=== PATIENT | male | born 1960 | race Caucasian/White ===

== ENCOUNTER 2016-05-21 09:41 | Inpatient (IN) | payer MEDICARE, OTHER ==
[~2016-05-21] VITALS: Ht 175.3 cm; Wt 88.9 kg
[~2016-05-21 09:41] MED LIST: KLONOPIN TAB 00.5 MG PO; LISINOPRIL5 MG PO; LORCET HD 10-31 EACH PO; LYRICA150 MG PO; MOBIC7.5 MG PO; PERCOCET 10-321 EACH PO; PRILOSEC OTC20 MG PO; ZOCOR40 MG PO; ZYLOPRIM 100 M100 MG PO
[2016-05-21 10:32] LABS: HEMOGLOBIN 13.8 gm/dl (14.0-17.5); RED BLOOD COUNT 4.74 M/UL (4.20-5.50); WHITE BLOOD COUNT 4.2 K/UL (4.5-11.0)
[2016-05-21 10:54] LABS: BUN/CREATININE RATIO 11 (0-10)
[2016-05-22 05:47] LABS: HEMOGLOBIN 12.3 gm/dl (14.0-17.5)
[2016-05-22 05:54] LABS: RED BLOOD COUNT 4.23 M/UL (4.20-5.50); WHITE BLOOD COUNT 8.4 K/UL (4.5-11.0)
[2016-05-22 06:14] LABS: BUN/CREATININE RATIO 15 (0-10)
[2016-05-23 05:28] LABS: HEMOGLOBIN 11.7 gm/dl (14.0-17.5); RED BLOOD COUNT 4.04 M/UL (4.20-5.50); WHITE BLOOD COUNT 7.1 K/UL (4.5-11.0)
[2016-05-23 05:46] LABS: BUN/CREATININE RATIO 17 (0-10)
[2016-05-24 05:23] LABS: HEMOGLOBIN 11.5 gm/dl (14.0-17.5); WHITE BLOOD COUNT 5.2 K/UL (4.5-11.0)
[2016-05-24 05:43] LABS: BUN/CREATININE RATIO 17 (0-10)
[2016-05-25 04:29] LABS: BUN/CREATININE RATIO 18 (0-10)
[2016-05-26 05:24] LABS: BUN/CREATININE RATIO 13 (0-10)
[2016-05-27 06:31] LABS: BUN/CREATININE RATIO 17 (0-10)
== END 2016-05-27 16:15 | DRG 465 ==
LOC: OR 09:41 → M/S 18:16 → OR 05-22 13:27 → M/S 05-22 13:27
PROVIDERS: Internal Medicine Infectious Disease; ADMIT Orthopaedic Surgery
PROC: 0J9Q0ZZ Drainage of Right Foot Subcutaneous Tissue and Fascia, Open Approach (ICD-10-PCS; principal; 2016-05-22)
PROC: 0JBQ0ZZ Excision of Right Foot Subcutaneous Tissue and Fascia, Open Approach (ICD-10-PCS; 2016-05-22)
PROC: B5181ZA Fluoroscopy of Superior Vena Cava using Low Osmolar Contrast, Guidance (ICD-10-PCS; 2016-05-23)
PROC: 02HV33Z Insertion of Infusion Device into Superior Vena Cava, Percutaneous Approach (ICD-10-PCS; 2016-05-23)
DX: T84.59XA Infection and inflammatory reaction due to other internal joint prosthesis, initial encounter (principal); Z96.661 Presence of right artificial ankle joint; A49.02 Methicillin resistant Staphylococcus aureus infection, unspecified site; I10 Essential (primary) hypertension; E78.5 Hyperlipidemia, unspecified; E03.9 Hypothyroidism, unspecified; M10.9 Gout, unspecified; F32.9 Major depressive disorder, single episode, unspecified; K21.9 Gastro-esophageal reflux disease without esophagitis; Z98.890 Other specified postprocedural states; Z87.828 Personal history of other (healed) physical injury and trauma; F17.210 Nicotine dependence, cigarettes, uncomplicated; Z80.9 Family history of malignant neoplasm, unspecified; Z83.6 Family history of other diseases of the respiratory system; Z88.6 Allergy status to analgesic agent; Z79.899 Other long term (current) drug therapy; Z79.1 Long term (current) use of non-steroidal anti-inflammatories (NSAID)
CPT/HCPCS: 36415; 80048; 80053; 80202; 81001; 83036; 84443; 85025; 86140; 86850; 86900; 86901; 87070; 87077; 87081; 87186; 87205; 93005; 97110; 97116; J1100; J1885; J2270; J2405; J2795; J3010; J3370; J7070; J7120

== ENCOUNTER → 2016-07-01 | Outpatient (CLI) | payer MEDICARE, OTHER ==
[~2016-07-01] VITALS: Ht 175.3 cm; Wt 102.1 kg
[~2016-07-01] MED LIST changes: +PAXIL40 MG PO; +SYNTHROID125 MCG PO; +VANCOCIN 125MG/2.5ML IV
== END ==
LOC: OPSV 12:56
DX: T84.69XD Infection and inflammatory reaction due to internal fixation device of other site, subsequent encounter (principal); L03.115 Cellulitis of right lower limb; B95.62 Methicillin resistant Staphylococcus aureus infection as the cause of diseases classified elsewhere; Z96.661 Presence of right artificial ankle joint; Z45.2 Encounter for adjustment and management of vascular access device
CPT/HCPCS: 96374; J2997

== ENCOUNTER 2016-07-23 07:34 | Inpatient (IN) | payer MEDICARE, OTHER ==
[~2016-07-23] VITALS: Ht 175.3 cm; Wt 93.9 kg
[~2016-07-23 07:34] MED LIST changes: -PAXIL40 MG PO; -SYNTHROID125 MCG PO; -VANCOCIN 125MG/2.5ML IV
[2016-07-23 08:11] LABS: HEMOGLOBIN 14.2 gm/dl (14.0-17.5); RED BLOOD COUNT 4.87 M/UL (4.20-5.50); WHITE BLOOD COUNT 5.3 K/UL (4.5-11.0)
[2016-07-23 08:31] LABS: BUN/CREATININE RATIO 10 (0-10)
[2016-07-23] MEDS ORDERED: VANCOCIN 125MG/2.5ML IV (09:14)
[2016-07-23] MEDS ORDERED: SYNTHROID125 MCG PO (16:45)
[2016-07-23] MEDS ORDERED: PAXIL40 MG PO (16:46)
[2016-07-24 05:15] LABS: HEMOGLOBIN 12.5 gm/dl (14.0-17.5); WHITE BLOOD COUNT 6.3 K/UL (4.5-11.0)
[2016-07-24 05:17] LABS: RED BLOOD COUNT 4.31 M/UL (4.20-5.50)
[2016-07-24 05:54] LABS: BUN/CREATININE RATIO 9 (0-10)
[2016-07-25 06:11] LABS: HEMOGLOBIN 12.7 gm/dl (14.0-17.5); RED BLOOD COUNT 4.35 M/UL (4.20-5.50); WHITE BLOOD COUNT 6.7 K/UL (4.5-11.0)
[2016-07-25 06:28] LABS: BUN/CREATININE RATIO 13 (0-10)
[2016-07-26 04:25] LABS: HEMOGLOBIN 12.6 gm/dl (14.0-17.5); RED BLOOD COUNT 4.38 M/UL (4.20-5.50)
[2016-07-26 04:40] LABS: BUN/CREATININE RATIO 16 (0-10)
[2016-07-27 05:28] LABS: BUN/CREATININE RATIO 15 (0-10)
[2016-07-28 05:52] LABS: HEMOGLOBIN 15.2 gm/dl (14.0-17.5); RED BLOOD COUNT 5.15 M/UL (4.20-5.50); WHITE BLOOD COUNT 6.9 K/UL (4.5-11.0)
[2016-07-28 06:11] LABS: BUN/CREATININE RATIO 15 (0-10)
== END 2016-07-29 13:27 | disposition home or self-care (01) | DRG 493 ==
LOC: OR 07:34 → M/S 07:34 → OR 13:43 → M/S 07-29 13:27
PROVIDERS: Internal Medicine Infectious Disease; ADMIT Orthopaedic Surgery
PROC: 3E00X29 Introduction of Other Anti-infective into Skin and Mucous Membranes, External Approach (ICD-10-PCS; principal; 2016-07-23 10:45)
PROC: 0QPG04Z Removal of Internal Fixation Device from Right Tibia, Open Approach (ICD-10-PCS; principal; 2016-07-23 10:45)
PROC: 0QBJ0ZZ Excision of Right Fibula, Open Approach (ICD-10-PCS; principal; 2016-07-23 10:45)
DX: T84.622A Infection and inflammatory reaction due to internal fixation device of right tibia, initial encounter (principal); M86.671 Other chronic osteomyelitis, right ankle and foot; B95.62 Methicillin resistant Staphylococcus aureus infection as the cause of diseases classified elsewhere; Y79.1 Therapeutic (nonsurgical) and rehabilitative orthopedic devices associated with adverse incidents; M89.561 Osteolysis, right lower leg
CPT/HCPCS: 36415; 73600; 73610; 76000; 80048; 80053; 80202; 85025; 85027; 86140; 87070; 87075; 87077; 87186; 87205; 97110; 97116; C1713; J1885; J2250; J3010; J3370; J7070; J7120

== ENCOUNTER 2020-06-02 08:42 | Inpatient (IN) | payer MEDICARE, OTHER ==
[~2020-06-02] VITALS: Ht 175.3 cm; Wt 106.1 kg
[~2020-06-02 08:42] MED LIST changes: +PAXIL40 MG PO; +SYNTHROID125 MCG PO; +VANCOCIN 125MG/2.5ML IV
[2020-06-02 14:44] LABS: HEMOGLOBIN 10.9 gm/dl (14.0-17.5); RED BLOOD COUNT 3.52 M/UL (4.20-5.50); WHITE BLOOD COUNT 5.5 K/UL (4.5-11.0)
[2020-06-02 15:29] LABS: BUN/CREATININE RATIO 15 (0-10)
[2020-06-02 19:17] LABS: HEMOGLOBIN 10.9 gm/dl (14.0-17.5); RED BLOOD COUNT 3.52 M/UL (4.20-5.50); WHITE BLOOD COUNT 5.4 K/UL (4.5-11.0)
[2020-06-02 19:38] LABS: BUN/CREATININE RATIO 13 (0-10)
[2020-06-03 02:22] LABS: HEMOGLOBIN 11.1 gm/dl (14.0-17.5); RED BLOOD COUNT 3.62 M/UL (4.20-5.50); WHITE BLOOD COUNT 5.5 K/UL (4.5-11.0)
[2020-06-03 02:53] LABS: BUN/CREATININE RATIO 14 (0-10)
[2020-06-03] MEDS ORDERED: BRILINTA 90 MG90 MG PO (11:51)
[2020-06-03] MEDS ORDERED: ATORVASTATIN CA80 MG PO (11:51)
[2020-06-03] MEDS ORDERED: ASPIRIN EC81 MG PO (11:51)
[2020-06-03] MEDS ORDERED: LOPRESSOR 25 MG25 MG PO (12:44)
== END 2020-06-03 15:25 | disposition home or self-care (01) | DRG 247 ==
LOC: PROG CARE 12:40
PROVIDERS: Internal Medicine Interventional Cardiology; ADMIT Internal Medicine
PROC: 4A033BC Measurement of Arterial Pressure, Coronary, Percutaneous Approach (ICD-10-PCS; principal; 2020-06-02)
PROC: 027034Z Dilation of Coronary Artery, One Artery with Drug-eluting Intraluminal Device, Percutaneous Approach (ICD-10-PCS; 2020-06-02)
PROC: 4A023N7 Measurement of Cardiac Sampling and Pressure, Left Heart, Percutaneous Approach (ICD-10-PCS; 2020-06-02)
PROC: B2111ZZ Fluoroscopy of Multiple Coronary Arteries using Low Osmolar Contrast (ICD-10-PCS; 2020-06-02)
PROC: B24BZZZ Ultrasonography of Heart with Aorta (ICD-10-PCS; 2020-06-02)
DX: I21.4 Non-ST elevation (NSTEMI) myocardial infarction (principal); I10 Essential (primary) hypertension; E78.5 Hyperlipidemia, unspecified; M10.9 Gout, unspecified; E03.9 Hypothyroidism, unspecified; F41.9 Anxiety disorder, unspecified; F32.9 Major depressive disorder, single episode, unspecified; F17.210 Nicotine dependence, cigarettes, uncomplicated; D64.9 Anemia, unspecified; N40.0 Benign prostatic hyperplasia without lower urinary tract symptoms; K80.20 Calculus of gallbladder without cholecystitis without obstruction; Z98.890 Other specified postprocedural states; Z80.9 Family history of malignant neoplasm, unspecified; Z79.899 Other long term (current) drug therapy; E66.01 Morbid (severe) obesity due to excess calories; G89.29 Other chronic pain; M54.9 Dorsalgia, unspecified; I25.110 Atherosclerotic heart disease of native coronary artery with unstable angina pectoris; Z68.34 Body mass index [BMI] 34.0-34.9, adult
CPT/HCPCS: ECHO; 36415; 80048; 80053; 82550; 82553; 83036; 83735; 83880; 84443; 84484; 85025; 85027; 85347; 93005; 93306; 93571; 99152; 99153; C1769; C1874; C1887; C9600; J0153; J0461; J1170; J1644; J2250; J2270; J2405; J3010; J3246; J7040; Q9965